=== PATIENT | female | born 1950 | race Caucasian/White ===

== ENCOUNTER 2017-04-26 09:17 | Emergency (ER) | payer MEDICARE ==
[~2017-04-26] VITALS: Ht 172.7 cm; Wt 91.0 kg
[2017-04-26 09:33] VITALS: BP 160/75; PULSE 102; RESP 17; TEMP 98.7; O2SAT 98
[2017-04-26] MEDS ORDERED: SODIUM CHLOR 0.9% 1000 ML INJ 1,000 ML IV ONE (09:58)
[2017-04-26 10:24] LABS: AUTOMATED NEUTROPHIL # 5.5 TH/MM3 (1.8-7.7); BASOPHIL % 0.6 % (0.0-2.0); EOSINOPHIL # 0.2 TH/MM3 (0-0.4); EOSINOPHIL % 2.2 % (0.0-4.0); HEMATOCRIT 26.1 % (35.0-46.0); HEMO FLAGS DIFF FINAL; LYMPH % 22.7 % (9.0-44.0); LYMPHOCYTE # 1.8 TH/MM3 (1.0-4.8); MEAN CELL VOLUME 83.2 FL (80.0-100.0); MEAN CORPUSCULAR HEMOGLOBIN 27.4 PG (27.0-34.0); MONO % 5.6 % (0.0-8.0); NEUT % 68.9 % (16.0-70.0); PLATELET COUNT 331 TH/MM3 (150-450); RED BLOOD COUNT 3.14 MIL/MM3 (4.00-5.30); WHITE BLOOD COUNT 7.9 TH/MM3 (4.0-11.0)
[2017-04-26 10:33] LABS: POTASSIUM 3.6 MEQ/L (3.5-5.1)
[2017-04-26 10:36] LABS: BICARBONATE 26.2 MEQ/L (21.0-32.0)
[2017-04-26 10:54] VITALS: BP 157/83; PULSE 104; RESP 18; O2SAT 98
--- NOTE | 2017-04-26 11:06 | PD ---
HPI Chief Complaint: Parlor Maid Problem/Complaint Time Seen by Provider: 09:42 Travel History International Travel<30 days: No Contact w/Intl Traveler<30days: No Traveled to known affect area: No History of Present Illness HPI 66-year-old female with history of intermittent vaginal bleeding for the last 2 weeks. Patient reports to using 2-3 pads per day. Patient denies abdominal pain. She has not seen a VASCULAR PHYSICIAN or had a pelvic exam and 28 years. Patient reports the bleeding has resolved over the last 2 days but she felt slightly dizzy upon standing this morning prompting her visit today. She currently has no complaints. She denies chest pain, shortness of breath, abdominal pain. PFSH Past Medical History Medical History: Denies Significant Hx Influenza Vaccination: No Menopausal: Yes Past Surgical History Surgical History: No Previous Surgery Social History Alcohol Use: No Tobacco Use: No Substance Use: No Allergies-Medications (Allergen,Severity, Reaction): Coded Allergies: No Known Allergies (Unverified , 04/26/17) Reported Meds & Prescriptions Reported Meds & Active Scripts Active No Active Prescriptions or Reported Medications Review of Systems Except as stated in HPI: all other systems reviewed are Neg General / Constitutional: No: Fever Eyes: No: Visual changes HENT: No: Headaches Cardiovascular: No: Chest Pain or Discomfort Respiratory: No: Shortness of Breath Gastrointestinal: No: Abdominal Pain Genitourinary: No: Dysuria Musculoskeletal: No: Pain Skin: No Rash Neurologic: No: Weakness Psychiatric: No: Depression Physical Exam Narrative GENERAL: Alert well-nourished and well-appearing female SKIN: Focused skin assessment warm/dry. HEAD: Atraumatic. Normocephalic. EYES: Pupils equal and round. No scleral icterus. No injection or drainage. Conjunctiva is pink. ENT: No nasal bleeding or discharge. Mucous membranes pink and moist. NECK: Trachea midline. No JVD. CARDIOVASCULAR: Regular rate and rhythm. No murmur appreciated. RESPIRATORY: No accessory muscle use. Clear to auscultation. Breath sounds equal bilaterally. GASTROINTESTINAL: Abdomen soft, non-tender, nondistended. Hepatic and splenic margins not palpable. MUSCULOSKELETAL: No obvious deformities. No clubbing. No cyanosis. No edema. : Normal appearing external genitalia without lesions, no blood in the vault. Numerous fleshy colored growths on what appears to be the cervix that become friable and slightly bleed when swabbed. No adnexal mass or tenderness. The uterus is not enlarged. NEUROLOGICAL: Awake and alert. No obvious cranial nerve deficits. Motor grossly within normal limits. Normal speech. PSYCHIATRIC: Appropriate mood and affect; insight and judgment normal. Data Data Last Documented VS Vital Signs Date Time Temp Pulse Resp B/P (MAP) Pulse Ox O2 Delivery O2 Flow Rate FiO2 04/26/17 11:31 04/26/17 10:54 104 18 98 Room Air 04/26/17 09:33 98.7 Orders Orders Complete Blood Count With Diff (04/26/17 09:58) Basic Metabolic Panel (Bmp) (04/26/17 09:58) Iv Access Insert/Monitor (04/26/17 09:58) Sodium Chlor 0.9% 1000 Ml Inj (Ns 1000 M (04/26/17 09:58) Orthostatic Blood Pressure (04/26/17 09:58) Labs Laboratory Tests Test 04/26/17 10:10 White Blood Count 7.9 TH/MM3 Red Blood Count 3.14 MIL/MM3 Hemoglobin 8.6 GM/DL Hematocrit 26.1 % Mean Corpuscular Volume 83.2 FL Mean Corpuscular Hemoglobin 27.4 PG Mean Corpuscular Hemoglobin Concent 33.0 % Red Cell Distribution Width 15.0 % Platelet Count 331 TH/MM3 Mean Platelet Volume 6.4 FL Neutrophils (%) (Auto) 68.9 % Lymphocytes (%) (Auto) 22.7 % Monocytes (%) (Auto) 5.6 % Eosinophils (%) (Auto) 2.2 % Basophils (%) (Auto) 0.6 % Neutrophils # (Auto) 5.5 TH/MM3 Lymphocytes # (Auto) 1.8 TH/MM3 Monocytes # (Auto) 0.4 TH/MM3 Eosinophils # (Auto) 0.2 TH/MM3 Basophils # (Auto) 0.0 TH/MM3 CBC Comment DIFF FINAL Differential Comment Blood Urea Nitrogen 12 MG/DL Creatinine 0.82 MG/DL Random Glucose 146 MG/DL Calcium Level 8.4 MG/DL Sodium Level 140 MEQ/L Potassium Level 3.6 MEQ/L Chloride Level 106 MEQ/L Carbon Dioxide Level 26.2 MEQ/L Anion Gap 8 MEQ/L Estimat Glomerular Filtration Rate 69 ML/MIN MDM Medical Decision Making Medical Screen Exam Complete: Yes Emergency Medical Condition: Yes Differential Diagnosis Differential diagnoses include but not limited to dysfunctional uterine bleeding , malignancy, cervicitis Narrative Course 66-year-old female with history of intermittent vaginal bleeding for the last 2 weeks. Patient reports to using 2-3 pads per day. Patient denies abdominal pain. She has not seen a VASCULAR PHYSICIAN or had a pelvic exam and 28 years. Patient reports the bleeding has resolved over the last 2 days but she felt slightly dizzy upon standing this morning prompting her visit today. She currently has no complaints. On exam the patient has fleshy colored growths on the cervix which began to bleed mildly during the pelvic exam. She has no adnexal mass or tenderness. The uterus is not enlarged. Her abdomen is soft and nontender. She was found to be anemic with hemoglobin of 8.6. Orthostatic vital signs showed a mild increase in heart rate. She received 1 L of IV fluids. On reexam she reports symptom improvement after fluids. She reports the dizziness has resolved. She reports no vaginal bleeding at this time. health program manager set up appointment with outpatient VASCULAR PHYSICIAN/oncologist Dr. BISHOP for follow-up on Saturday. Strict return precautions discussed. Patient is to return to the emergency department immediately if she begins to have heavy vaginal bleeding or dizziness. Diagnosis Primary Impression: Vaginal bleeding Referrals: Urvashi Bishop MD [facility] Additional Instructions: Keep your scheduled appointment with Dr. NORIEGA their office will be calling you to set up an exact date Stay well hydrated by drinking plenty of fluids Return to the emergency department if he developed new or worsening symptoms Scripts No Active Prescriptions or Reported Meds Disposition: 01 DISCHARGE HOME Condition: Stable Urvashi Castellon Apr 26, 2017 11:06
== END 2017-04-26 11:51 | disposition home or self-care (01) ==
LOC: PHED 09:17
DX: N93.9 Abnormal uterine and vaginal bleeding, unspecified (principal)
CPT/HCPCS: 80048; 85025; 96360; 99284; J7030

== ENCOUNTER → 2017-05-02 | Outpatient (CLI) | payer MEDICARE ==
[2017-05-02 11:41] LABS: AUTOMATED NEUTROPHIL # 4.5 TH/MM3 (1.8-7.7); BASOPHIL # 0.1 TH/MM3 (0-0.2); BASOPHIL % 0.8 % (0.0-2.0); EOSINOPHIL # 0.2 TH/MM3 (0-0.4); HEMATOCRIT 29.2 % (35.0-46.0); HEMO FLAGS DIFF FINAL; LYMPH % 31.3 % (9.0-44.0); LYMPHOCYTE # 2.3 TH/MM3 (1.0-4.8); MEAN CELL VOLUME 82.9 FL (80.0-100.0); MEAN CORPUSCULAR HGB CONC 32.6 % (32.0-36.0); MONO % 5.9 % (0.0-8.0); PLATELET COUNT 349 TH/MM3 (150-450); RED BLOOD COUNT 3.52 MIL/MM3 (4.00-5.30); RED CELL DISTRIBUTION WIDTH 15.3 % (11.6-17.2); WHITE BLOOD COUNT 7.5 TH/MM3 (4.0-11.0)
[2017-05-02 11:58] LABS: APTT (PATIENT) 24.2 SEC (24.3-30.1); PROTHROMBIN TIME - PATIENT 10.5 SEC (9.8-11.6)
[2017-05-02 12:23] LABS: ANION GAP 7 MEQ/L (5-15); AST (GOT) 13 U/L (15-37); BICARBONATE 25.6 MEQ/L (21.0-32.0); BLOOD UREA NITROGEN 12 MG/DL (7-18); CHLORIDE 107 MEQ/L (98-107); GLOMERULAR FILTRATION RATE 78 ML/MIN (>89); GLUCOSE,FASTING 98 MG/DL (74-99); POTASSIUM 4.4 MEQ/L (3.5-5.1); SODIUM (NA) 140 MEQ/L (136-145)
[2017-05-02 12:24] LABS: ALT (GPT) 19 U/L (10-53)
[2017-05-02 12:26] LABS: ALKALINE PHOSPHATASE 88 U/L (45-117); TOTAL BILIRUBIN ADULT 0.4 MG/DL (0.2-1.0)
--- NOTE | 2017-05-02 12:56 | RADRPT ---
EXAM DATE/TIME: 05/02/2017 11:51 [facility] COMPARISON: No previous studies available for comparison. INDICATIONS : Pre op to evaluate for pneumonia, pneumothorax, or any communicable diseases. MEDICAL HISTORY : None. SURGICAL HISTORY : None. ENCOUNTER: Initial ACUITY: 1 day PAIN SCORE: 0/10 LOCATION: Bilateral chest FINDINGS: PA and lateral views of the chest demonstrate the lungs to be symmetrically aerated without evidence of mass, infiltrate or effusion. The cardiomediastinal contours are unremarkable. Osseous structure s are intact. CONCLUSION: No evidence of acute cardiopulmonary disease. Zia Matthew MD on May 02, 2017 at 12:54 Board Certified Radiologist. This report was verified electronically.
--- NOTE | 2017-05-03 18:26 | EKG ---
Date Performed: 05/02/2017 Time Performed: 11:18:15 PTAGE: 66 years EKG: Sinus rhythm LOW QRS VOLTAGE IN PRECORDIAL LEADS BORDERLINE ECG NO PREVIOUS TRACING DOCTOR: Esha Barron Interpretating Date/Time 05/03/2017 18:18:30
== END ==
LOC: CPRE 11:01
PROVIDERS: ATTEND Obstetrics & Gynecology Gynecologic Oncology
DX: Z01.812 Encounter for preprocedural laboratory examination (principal); Z01.810 Encounter for preprocedural cardiovascular examination; Z01.811 Encounter for preprocedural respiratory examination; N95.0 Postmenopausal bleeding; R94.31 Abnormal electrocardiogram [ECG] [EKG]
CPT/HCPCS: 36415; 71020; 80053; 85025; 85610; 85730; 93005

== ENCOUNTER 2017-05-14 10:28 | Inpatient (IN) | payer MEDICARE ==
[~2017-05-14] VITALS: Ht 170.2 cm; Wt 82.3 kg
[2017-05-14] MEDS ORDERED: METOPROLOL TARTRATE 25 MG TAB PO PRN (11:00)
[2017-05-14] MEDS ORDERED: LACTATED RINGER'S 1000 ML IV PRN (11:00)
[2017-05-14] MEDS ORDERED: SODIUM CHLORID 0.9% 500 ML IV PRN (11:00)
[2017-05-14] MEDS ORDERED: POVIDONE IODINE 5% (ANTISEPSIS KIT) 4 APPLICATIONS EACH NARE PRN (11:00)
[2017-05-14] MEDS ORDERED: CHLORHEXIDINE GLUCONATE 2 % 1 PACK (2 CLOTHS) TOPICAL PRN (11:00)
[2017-05-14] MEDS ORDERED: ACETAMINOPHEN 1000 MG/100 ML 100 ML IV ONE (11:58)
[2017-05-14] MEDS ORDERED: GLYCOPYRROLATE 1 MG/5 ML SYRINGE IV PUSH ONE (12:00)
[2017-05-14] MEDS ORDERED: DEXAMETHASONE SOD PHOS 4 MG/ML VIAL IV ONE (12:00)
[2017-05-14] MEDS ORDERED: NEOSTIGMINE 3 MG/3 ML SYR IV ONE (12:00)
[2017-05-14] MEDS ORDERED: PROPOFOL 200 MG/20 ML AMP IV ONE (12:00)
[2017-05-14] MEDS ORDERED: ONDANSETRON HCL 4 MG/2 ML VIAL IV ONE (12:00)
[2017-05-14] MEDS ORDERED: MIDAZOLAM HCL 2 MG/2 ML VIAL IV ONE (12:00)
[2017-05-14] MEDS ORDERED: LACTATED RINGER'S 1000 ML INJ 1,000 ML IV ONE (12:00)
[2017-05-14] MEDS ORDERED: LIDOCAINE HCL 1% PF 5 ML SYRINGE OTHER ONE (12:00)
[2017-05-14] MEDS ORDERED: ROCURONIUM INJ 50 MG/5 ML SYRINGE IV PUSH ONE (12:00)
[2017-05-14] MEDS ORDERED: ESTROGENS CONJUGATED VAG CREA 15 APPL/30 GM TUBE ONE (14:08)
[2017-05-14] MEDS ORDERED: DO NOT ADM ANY ANTICOAGULANT DRUGS PRN (14:28)
[2017-05-14] MEDS ORDERED: oxyCODONE/ACETAMINOPHEN 5 MG/325 MG TAB PO PRN ×2 (14:30)
[2017-05-14] MEDS ORDERED: ONDANSETRON HCL 4 MG/2 ML VIAL IVP PRN (14:30)
[2017-05-14] MEDS ORDERED: SODIUM CHLORIDE 0.9% FLUSH 10 ML FLUSH IV FLUSH PRN (14:30)
[2017-05-14] MEDS ORDERED: LORazepam 0.5 MG TAB PO PRN (15:00)
[2017-05-14] MEDS: D5-1/2 NS + KCL 20 MEQ INJ 1,000 ML IV SCH (15:00)
[2017-05-14] MEDS ORDERED: diphenhydrAMINE HCL 25 MG CAP PO PRN (15:00)
[2017-05-14] MEDS ORDERED: PILL SPLITTER OTHER PRN (15:00)
[2017-05-14] MEDS ORDERED: KETOROLAC TROMETHAMINE 30 MG/ML (IVP) VIAL IVP SCH (15:00)
[2017-05-14] MEDS ORDERED: DIATRIZOATE MEGLUM/DIATRIZOATE SOD 9 ML CUP PO ONE (15:15)
[2017-05-14] MEDS ORDERED: MIDAZOLAM HCL 2 MG/2 ML VIAL ONE (16:21)
[2017-05-14] MEDS ORDERED: ceFAZolin 2 GM PREMIX 50 ML ONE (16:41)
--- NOTE | 2017-05-14 17:40 | PD.RAD ---
Post Procedure Progress Note Pre Procedure Diagnosis: (1) Vaginal hemorrhage (2) Uterine mass Post Procedure Diagnosis: (1) Vaginal hemorrhage (2) Uterine mass Procedure Date: May 14, 2017 Supervising Radiologist: Augusto Jeffrey JR Proceduralist/Assist: Ioana Maradiaga, RT(R)(), Diana Cook RT(R) Anesthesia: Conscious Sedation Plan of Activity Patient to Unit: Critical Care Patient Condition: Good See PACS Report for procedural detail/treatment Vascular-Arterial Procedure Procedure 1 Procedure(s): Embolization Access Access Site(s): Right Femoral Artery Closure Site(s): Right vascular closure device Findings: Pelvic angiogram shows no active bleed. Successful bilateral UAE utilizing gelfoam. Jr. Wojciech,Augusto Stephens MD May 14, 2017 17:40
[2017-05-14] MEDS ORDERED: GELATIN 12 MM/7 MM FOAM I-ARTERIAL ONE (18:18)
[2017-05-14] MEDS ORDERED: IODIXANOL 320 MG/ML 50 ML VIAL (for RAD SPEC) I-ARTERIAL ONE (18:18)
[2017-05-14] MEDS: SODIUM CHLORIDE 0.9% FLUSH 10 ML FLUSH IV FLUSH SCH (20:28)
[2017-05-14 20:30] VITALS: BP 169/94; PULSE 107; RESP 18; TEMP 98.8; O2SAT 96
--- NOTE | 2017-05-14 20:57 | RADRPT ---
EXAM DATE/TIME: 05/14/2017 16:39 [facility] COMPARISON: No previous studies available for comparison. INDICATIONS : Patient with a history of cervical mass. Postbiopsy bleeding. Embolization requested by MEDICAL HISTORY : Post menopausal bleeding Cervical mass SURGICAL HISTORY : None ENCOUNTER: Initial ACUITY: 1 day PAIN SCORE: 0/10 FLUORO TIME: 10.0 minutes IMAGE SERIES: 18 ACCESS SITE: Right Femoral artery SEDATION TIME: 60 minutes CONTRAST: 1.) 130 cc Visipaque (iodixanol) MEDICATION(S): 1.) 2 mg midazolam (Versed) IV 2.) 100 mcg fentanyl (Sublimaze) IV DEVICE(S): 1.) Bilateral uterine artery Gelfoam 2.) Right common femoral artery 6FR Angio-Seal PROCEDURE : 1. Ultrasound-guided puncture of the access site. 2. Angiography of the access site prior to closure device. 3. Conscious sedation with continuous EKG and Oximetry monitoring. 4. Percutaneous closure of the access site. 5. Angiography of the left uterine artery 6. Angiography of the right uterine artery 7. embolization of the left uterine artery 8. Embolization of the right uterine artery The risks, benefits and alternatives to the procedure were explained and verbal and written consent w as obtained. The site was prepped in sterile fashion. Full sterile technique was used, including ca p, mask, sterile gloves and gown and a large sterile sheet. Hand hygiene and 2% chlorhexidine and/or betadine/alcohol prep was utilized per protocol for cutaneous antisepsis. Sterile gel and sterile p robe cover were utilized for ultrasound guidance. The skin and subcutaneous tissues were infiltrated with local anesthetic solution. With ultrasound and fluoroscopic guidance the right common femoral artery was punctured and a vascula r sheath was placed. Angiography of the common femoral artery was performed for evaluation prior to percutaneous closure device placement. A catheter was passed into the lower abdominal aorta and a pelvic angiogram performed. The diagnostic images show a pelvic mass that is hypervascular in nature supplied predominantly via the left uterin e artery. There is a small component of the mass is supplied by a branch off the right L5 lumbar radha ry. This supplies a small portion of the right superolateral portion of the mass. The bulk of the sup ply to the mass is via the left uterine artery. No active hemorrhage observe. After reviewing the images and empiric bilateral uterine artery embolization was felt most prudent. T he left uterine artery was selected and selective angiography highlighted the detail of the anatomy a n arterial supply to the mass. Gelfoam embolization was performed to stasis. A followup angiogram was performed to confirm appropriate embolization. The right uterine artery was then selected. The size of this vessel required a microcatheter. A selective angiogram confirmed the appropriate position of the catheter. Gelfoam embolization was performed from this level as well. A small supply of the arter ial supply to the mass arising from the right L5 lumbar artery was not sufficient to warrant emboliza tion from that vessel. Hemostasis was obtained with the prescribed medicated closure device. Conscious sedation was perform ed with the prescribed dosages and duration as above in the presence of an independent trained radiol ogy nurse to assist in the monitoring of the patient. EKG and oximetry remained stable throughout th e procedure. CONCLUSION: No active source of hemorrhage observed. Bilateral uterine artery embolization performed without diff iculty. Note is made of a small portion of the arterial supply to the mass is arising from the right L5 lumbar artery. Augusto Jeffrey Jr., MD on May 14, 2017 at 19:55 Board Certified Radiologist. This report was verified electronically.
[2017-05-14] MEDS ORDERED: IOHEXOL 350 MG/ML 10 ML VIAL (for RAD DIAG) IVCONTRAST ONE (23:14)
[2017-05-15] VITALS (9 sets, daily range): BP systolic 132–161; BP diastolic 76–92; PULSE 73–104; RESP 18–20; TEMP 98.3–99.2; O2SAT 94–98
[2017-05-15] MEDS: D5-1/2 NS + KCL 20 MEQ INJ 1,000 ML IV SCH (00:39)
--- NOTE | 2017-05-15 01:54 | RADRPT ---
EXAM DATE/TIME: 05/14/2017 22:53 [facility] COMPARISON: CHEST PA & LAT, May 02, 2017, 11:51. INDICATIONS : Pelvic tumor. Evaluate for metastatic disease. IV CONTRAST: 80 cc Omnipaque 350 (iohexol) IV ; Cumulative dose for multiple exams. RADIATION DOSE: 5.64 CTDIvol (mGy) ; Combined studies - Thorax/Abdomen/Pelvis MEDICAL HISTORY : None SURGICAL HISTORY : None. ENCOUNTER: Initial ACUITY: 1 day PAIN SCALE: 0/10 LOCATION: chest TECHNIQUE: Volumetric scanning of the chest was performed. Using automated exposure control and adjustment of t he mA and/or kV according to patient size, radiation dose was kept as low as reasonably achievable to obtain optimal diagnostic quality images. DICOM format image data is available electronically for review and comparison. Follow-up recommendations for detected pulmonary nodules are based at a minimum on nodule size and pa tient risk factors according to Fleischner Society Guidelines. FINDINGS: LUNGS: Mild bibasilar atelectasis and/or scarring.. No concerning pulmonary nodule is visualized. PLEURA: There is no pleural thickening or pleural effusion. MEDIASTINUM: The heart and great vessels demonstrate no acute abnormality. There is no mediastinal or hilar lymph adenopathy. AXILLAE: Within normal limits. No lymphadenopathy. SKELETAL: Within normal limits for patient age. MISCELLANEOUS: The visualized upper abdominal organs demonstrate no acute abnormality. CONCLUSION: No evidence of thoracic metastatic disease. Mild atelectasis and/or scarring of the lung bases. Zia Matthew MD on May 15, 2017 at 1:51 Board Certified Radiologist. This report was verified electronically.
--- NOTE | 2017-05-15 02:01 | RADRPT ---
EXAM DATE/TIME: 05/14/2017 22:51 [facility] COMPARISON: No previous studies available for comparison. INDICATIONS : Pelvic tumor. Evaluate for metastatic disease. IV CONTRAST: 80 cc Omnipaque 350 (iohexol) IV ; Cumulative dose for multiple exams. ORAL CONTRAST: Prescribed oral contrast ingested. RADIATION DOSE: 5.64 CTDIvol (mGy) ; Combined studies - Thorax/Abdomen/Pelvis MEDICAL HISTORY : None SURGICAL HISTORY : None. ENCOUNTER: Initial ACUITY: 1 day PAIN SCALE: 0/10 LOCATION: Abdomen. TECHNIQUE: Volumetric scanning of the abdomen and pelvis was performed. Using automated exposure control and ad justment of the mA and/or kV according to patient size, radiation dose was kept as low as reasonably achievable to obtain optimal diagnostic quality images. DICOM format image data is available electro nically for review and comparison. FINDINGS: Friable appearing cervical mass noted measuring approximately 5.5 x 6.2 x 7.6 cm. There is a mass of the left uterine body/fundus that measures approximately 4.1 x 4.7 cm in size and appears to be a com ponent of the same cervical mass. The mass extends into the upper vagina. I don't see bladder involve ment. Scattered mildly conspicuous retroperitoneal lymph nodes are demonstrated. For example, there is a ri ght external iliac lymph node that measures approximately 12 x 15 mm in size. There are aortocaval ly mph nodes at the level of the lower pole of the left kidney and measure up to 10 x 12 mm in size. Liver, spleen, pancreas, adrenal glands and kidneys within normal limits. Numerous small stones are s uspected in the gallbladder. I don't see a duct stone or ductal dilatation. No lytic or sclerotic lesions seen of the visualized osseous structures. CONCLUSION: 1. Large uterine mass appears to arise from the cervix and lower portion of the mass appears friable and/or necrotic. 2. A few scattered upper limits of normal retroperitoneal lymph nodes as above. Zia Matthew MD on May 15, 2017 at 1:54 Board Certified Radiologist. This report was verified electronically.
[2017-05-15 05:53] LABS: AUTOMATED NEUTROPHIL # 8.1 TH/MM3 (1.8-7.7); BASOPHIL % 0.1 % (0.0-2.0); HEMATOCRIT 30.1 % (35.0-46.0); HEMO FLAGS DIFF FINAL; LYMPH % 13.1 % (9.0-44.0); LYMPHOCYTE # 1.3 TH/MM3 (1.0-4.8); MEAN CELL VOLUME 79.6 FL (80.0-100.0); MEAN CORPUSCULAR HEMOGLOBIN 26.2 PG (27.0-34.0); MEAN CORPUSCULAR HGB CONC 32.9 % (32.0-36.0); MONO % 5.8 % (0.0-8.0); PLATELET COUNT 324 TH/MM3 (150-450); RED BLOOD COUNT 3.78 MIL/MM3 (4.00-5.30); RED CELL DISTRIBUTION WIDTH 15.2 % (11.6-17.2); WHITE BLOOD COUNT 9.9 TH/MM3 (4.0-11.0)
[2017-05-15 06:23] LABS: BICARBONATE 25.5 MEQ/L (21.0-32.0); POTASSIUM 4.4 MEQ/L (3.5-5.1)
[2017-05-15] MEDS ORDERED: SODIUM CHLOR 0.9% 250 ML INJ 250 ML IV ONE (07:45)
--- NOTE | 2017-05-15 08:00 | MP ---
cc: AMINTA GRIGGS MD DATE OF SURGERY 05/14/2017 PREOPERATIVE DIAGNOSES 1. Central pelvic tumor. 2. Bleeding 3. Anemia. POSTOPERATIVE DIAGNOSIS 1. Central pelvic tumor. 2. Bleeding 3. Anemia. PROCEDURE Examination under anesthesia, biopsies of central pelvic tumor. Cystoscopy. Proctoscopy. SURGEON Aminta Griggs MD ELECTROPHONIC ENGINEER [employer] horticultural nursery assistant ANESTHESIA Laryngeal mask anesthesia. ESTIMATED BLOOD LOSS 200 cc. HISTORY This 66-year-old female presented initially to the emergency room reporting at least 7 months of postmenopausal bleeding at times associated with pain and sense of pelvic pressure. On exam she was seen to have tumor in the central pelvis either replacing the cervix or extending through a dilated cervix. She was referred to our office for further evaluation. She was seen and recommended exam under anesthesia, a tissue biopsy to clarify the diagnosis and she understands and agrees. She is seen again in the preop holding area accompanied by her [id number]. I again reviewed the findings and concerns, explained again this was an information-gathering step, diagnostic and that the information gathered today would be used toward making a definitive treatment decision. Questions were asked and answered. She expressed good understanding and agreed to proceed. FINDINGS On exam under anesthesia there was no overtly enlarged inguinal lymph nodes. External genitalia without mass or lesion. On speculum exam there is a large exophytic friable tumor; it is difficult to tell if it is rising from the endocervical canal and extending the cervix. The cervix is markedly dilated with the tumor diameter at least 4-5 cm versus tumor in the endometrium that has extended down through the cervical canal and dilated the cervix. Circumferentially around the perimeter of the cervix it is smooth. The uterus is quite prominent, estimated at least 14 cm. Whereas there is no obvious tumor to the pelvic sidewall and no obvious fixation in the parametria, there is some prominence to the parametria especially on the right. On cystoscopy the bladder mucosa appears normal circumferentially. The ureteral ostia are well-visualized bilaterally and there is good reflux of urine bilaterally. No evidence of tumor. No mass or polyp. On rigid proctosigmoidoscopy visibility only possible to depth of 12 cm with the mucosa appeared normal above which visibility was not possible due to complete lack of prep but rectovaginal exam confirms the anatomical findings without any overtly palpable nodular mass within the rectum. 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 Biopsy sites were quite hemorrhagic. PROCEDURE She was taken to the operating room, placed in dorsal lithotomy position after laryngeal mask anesthesia was administered. Time-out was undertaken. She was identified by sight recognition and hospital ID annamaria and the proposed procedure was reviewed and confirmed. She was carefully positioned and padded and exam under anesthesia was performed with findings as described above. She was prepped and draped in sterile fashion. In-and-out catheterization of the bladder. Exam was performed with findings. Two biopsies were taken from the tumor, one sent for frozen section analysis and one set aside for permanent histopathologic analysis. There was fairly active bleeding from the biopsy site. Topical Monsel's solution was placed with direct pressure and Ray-Blayne sponges placed against the cervix or pressure. Cystoscopy was performed using a 30-degree scope with the findings as described above showing no obvious abnormality in the bladder. No obvious compromise to the ureters. The bladder was drained. Inspection confirmed that there was still active bleeding from the biopsy site. The Ray-Blayne was soaked with blood. Reevaluation with additional Monsel's solution was applied with continued bleeding. Surgicel SNoW was placed across the face of the tumor and around the cervix and there was continued bleeding to soak the Surgicel SNoW. A second piece of Surgicel SNoW was placed around the cervix which seems to adequately control the bleeding at that moment and a Kerlix roll lubricated with Premarin Cream was placed under pressure in the lateral vaginal fornices around and overlying the cervix and in the vagina to assist in hemostasis from direct pressure. Out of concern for her to void, a Valenzuela catheter was placed in the bladder. Rigid proctosigmoidoscopy was performed with the findings as described above. Normal anatomy to a depth of 12 cm beyond which it could not be assessed. The proctoscope was removed. Change of sterile gloves was undertaken. The pack was inspected. There was no bleeding through the pack at that moment. I spoke to Dr. London Soliz and subsequently with Dr. Fabian Jeffrey in Interventional Radiology. I expressed my concerns about the hemorrhagic nature of this tumor, the fact that she is already anemic, has been bleeding for some time and the active bleeding that occurred with the exam and biopsies such that did not feel that it was safe to discharge her home at their current status. The ultimate treatment decision is uncertain whether or not she will be treated with radiation versus surgery as additional information is needed from the biopsies and we need to get imaging but I requested that she undergo a bilateral uterine artery embolization to help decrease the pulse pressure, decrease the pelvic bleeding and risk of hemorrhage and given the time and course of treatment is uncertain, it was felt that Gelfoam embolization would be appropriate and the interventional radiologists were gracious to move forward straight away. She was returned to dorsal supine position. Preliminary and final counts were correct. Foreign object left in the vagina was the vaginal pack. She has a Valenzuela catheter placed. The remainder of the hemostatic packing was biodegradable Surgicel. I then spoke to her [id number] (Sherron) who is her closest family member present, explained the findings and my recommendation for the uterine artery embolization. Questions were answered. She was pleased to provide consent in conjunction with her family member, realizing the important and urgent nature of this. Furthermore, I explained that I think she needs to be admitted to the hospital. We need to get imaging to get a better assessment and understanding of this tumor and extent, presence or absence of obvious metastatic disease and we will go ahead and type and cross her and in all probability transfuse her, try to get her some reserve, get her stabilized before discharge to home. With the aforementioned information, pathology pending, forthcoming imaging, she is to follow up with me next week (which is already scheduled) so that we may move forward with treatment recommendations and planning. MD RAQUEL Valdez/CARINA /6:46 AM /7:28 AM
[2017-05-15] MEDS: SODIUM CHLORIDE 0.9% FLUSH 10 ML FLUSH IV FLUSH SCH (08:13)
[2017-05-15] MEDS ORDERED: FUROSEMIDE 20 MG/2 ML VIAL IV PUSH ONE (08:30)
--- NOTE | 2017-05-15 08:33 | PD.ONC.PN ---
Subjective Subjective Remarks POD # 1 s/p EUA and bx s/p uterine artery embolization patient resting in bed IS at bedside, encourage to use every hour patient anxious to go home, will discharge home after transfusion of 2 units PRBs denies pain no n/v Objective Data Date Time Temp Pulse Resp B/P (MAP) Pulse Ox O2 Delivery O2 Flow Rate FiO2 05/15/17 07:54 99.2 82 20 144/76 (98) 96 05/15/17 04:00 98.8 90 18 150/84 (106) 96 05/15/17 00:06 95 05/15/17 00:00 98.3 104 18 161/92 (115) 94 05/14/17 20:30 98.8 107 18 169/94 (119) 96 05/14/17 18:28 98.6 85 15 160/85 (110) 93 Room Air 05/14/17 18:15 85 15 149/80 (103) 93 Room Air 05/14/17 18:00 84 15 149/80 (103) 95 Room Air 05/14/17 17:50 98.2 88 15 146/79 (101) 95 Room Air 05/14/17 15:49 98.3 94 16 153/75 (101) 100 Room Air 05/14/17 15:30 93 16 152/75 (100) 100 Room Air 05/14/17 15:15 88 16 151/76 (101) 100 Room Air 05/14/17 15:00 80 16 148/67 (94) 100 Nasal Cannula 3 05/14/17 14:45 92 17 149/71 (97) 100 Nasal Cannula 3 05/14/17 14:33 97.9 96 15 154/73 (100) 100 Nasal Cannula 3 05/14/17 11:11 98.3 96 20 148/82 (104) 97 05/15/17 05/15/17 05/15/17 07:00 15:00 23:00 Output Total 2250 ml 350 ml Balance -2250 ml -350 ml Result Diagram: 05/15/1751205/15/17512 Laboratory Results Laboratory Tests Test 05/15/17 05:13 White Blood Count 9.9 TH/MM3 Red Blood Count 3.78 MIL/MM3 Hemoglobin 9.9 GM/DL Hematocrit 30.1 % Mean Corpuscular Volume 79.6 FL Mean Corpuscular Hemoglobin 26.2 PG Mean Corpuscular Hemoglobin Concent 32.9 % Red Cell Distribution Width 15.2 % Platelet Count 324 TH/MM3 Mean Platelet Volume 6.7 FL Neutrophils (%) (Auto) 81.0 % Lymphocytes (%) (Auto) 13.1 % Monocytes (%) (Auto) 5.8 % Eosinophils (%) (Auto) 0.0 % Basophils (%) (Auto) 0.1 % Neutrophils # (Auto) 8.1 TH/MM3 Lymphocytes # (Auto) 1.3 TH/MM3 Monocytes # (Auto) 0.6 TH/MM3 Eosinophils # (Auto) 0.0 TH/MM3 Basophils # (Auto) 0.0 TH/MM3 CBC Comment DIFF FINAL Differential Comment Blood Urea Nitrogen 8 MG/DL Creatinine 0.74 MG/DL Random Glucose 184 MG/DL Calcium Level 8.5 MG/DL Sodium Level 139 MEQ/L Potassium Level 4.4 MEQ/L Chloride Level 105 MEQ/L Carbon Dioxide Level 25.5 MEQ/L Anion Gap 9 MEQ/L Estimat Glomerular Filtration Rate 78 ML/MIN Imaging Studies Last Impressions Chest CT 05/14/17 0000 Signed Impressions: Service Date/Time: Sunday, May 14, 2017 22:53 - CONCLUSION: No evidence of thoracic metastatic disease. Mild atelectasis and/or scarring of the lung bases. Zia Matthew MD Angiography 05/14/17 0000 Signed Impressions: Service Date/Time: Sunday, May 14, 2017 16:39 - CONCLUSION: No active source of hemorrhage observed. Bilateral uterine artery embolization performed without difficulty. Note is made of a small portion of the arterial supply to the mass is arising from the right L5 lumbar artery. Augusto Jeffrey Jr., MD Abdomen/Pelvis CT 05/14/17 0000 Signed Impressions: Service Date/Time: Sunday, May 14, 2017 22:51 - CONCLUSION: 1. Large uterine mass appears to arise from the cervix and lower portion of the mass appears friable and/or necrotic. 2. A few scattered upper limits of normal retroperitoneal lymph nodes as above. Zia Matthew MD Administered Medications Medications (Trade) Dose Ordered Sig/Taran Route PRN Reason Start Time Stop Time Status Last Admin Dose Admin Lactated Ringer's 1,000 ml @ 30 mls/hr Q24H PRN IV SEE LABEL COMMENTS 05/14/17 11:00 05/17/17 10:59 05/14/17 11:14 Povidone Iodine (Betadine 5% Antisepsis Kit) 1 applic [employer] PRN EACH NARE SEE LABEL COMMENTS 05/14/17 11:00 05/17/17 10:59 05/14/17 11:14 Chlorhexidine Gluconate (Chlorhexidine 2% Cloth) 3 pack [employer] PRN TOPICAL SEE LABEL COMMENTS 05/14/17 11:00 05/17/17 10:59 05/14/17 10:50 Potassium Chloride/Dextrose/ Sod Cl 1,000 ml @ 125 mls/hr Q8H IV 05/14/17 15:00 05/15/17 00:39 Objective Remarks GENERAL: Well-nourished, well-developed patient. SKIN: Warm and dry. HEAD: Normocephalic. EYES: No scleral icterus. No injection or drainage. CARDIOVASCULAR: Regular rate and rhythm without murmurs. RESPIRATORY: Breath sounds equal bilaterally. No accessory muscle use. PSYCHOLOGIST PRIVATE PRACTICE: vaginal packing removed without difficulty, no overt vaginal bleeding upon removal of packing. EXTREMITIES: No cyanosis, or edema. MUSCULOSKELETAL: Adequate muscle tone. PSYCHIATRIC: Appropriate mood and affect; insight and judgment normal. Assessment/Plan Problem List: (1) Vaginal hemorrhage ICD Codes: N93.9 - Abnormal uterine and vaginal bleeding, unspecified Status: Acute Plan: s/p uterine artery embolization vaginal packing removed without difficulty no overt vaginal bleeding Surgicel remains in vagina (2) Uterine mass ICD Codes: N85.9 - Noninflammatory disorder of uterus, unspecified Status: Acute Plan: s/p EUA with bx final pathology pending treatment recommendation based on final pathology cervical ca vs. uterine ct scan: favors tumor arising from cervix, + lymph nodes Attending Statement discussed with RN importance of transfusion before discharge discussed with PT, Ok for discharge once transfusion completed discussed with Fredis Spears May 15, 2017 08:33
[2017-05-15] MEDS: diphenhydrAMINE HCL 25 MG CAP PO PRN ×2 (10:48→14:56)
[2017-05-15] MEDS: ACETAMINOPHEN 325 MG TAB PO PRN ×2 (10:49→14:55)
--- NOTE | 2017-05-16 11:58 | MD ---
cc: AMINTA GRIGGS MD ADMISSION DATE: 05/14/2017 DISCHARGE DATE: 05/15/2017 PROCEDURE 1. Examination under anesthesia, biopsies of cervical tumor, cystoscopy, proctoscopy, acquisition of hemostasis and vaginal packing. 2. Interventional radiology directed bilateral arterial embolization. 3. On 05/13/2017 transfusion two units of packed red blood cells. 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 HOSPITAL COURSE She did well during her hospitalization but required some attention. She had a very friable hemorrhagic tumor. She was anemic biopsies initiated additional bleeding which required attention with hemostasis and vaginal packing interventional radiology was consulted, they performed a bilateral uterine artery embolization and she was transfused 2 units to help offset the anemia and to provide some reserve prior to discharge. She tolerated the aforementioned procedures well, at the time of this dictation. She has ongoing transfusion, she has had no problems with the transfusion thus far. She understands and agrees with and appreciates all of the steps taken thus far. Also during her hospitalization she had a diagnostic CT scan of the chest, abdomen and pelvis performed. 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 CT scan shows a markedly enlarged uterus with a very prominent cervix measuring over 6 cm with a obvious tumor, and the tumor extends beyond the cervix into the vagina. There is also some borderline suspicious lymph nodes in the left para-aortic region and right external iliac region. Final pathology is pending, ins and outs 1520 over 2900, H&H hemoglobin/hematocrit 9.9 and 30.91. Electrolytes showed normal renal function, BUN, creatinine eight, 0.74. PHYSICAL EXAMINATION: VITAL SIGNS: The physical exam she is afebrile, pulse 82-102, respirations 16-20, blood pressure 132-150 over 76-84, O2 saturations greater than or equal to 94%. IN GENERAL: She is alert and oriented x3. ABDOMEN: Nonacute. PELVIC: The vaginal pack was removed. Valenzuela catheter were removed. There was no active bleeding detected. ASSESSMENT Postop day #1, hospital day #2 hemodynamically stable ongoing Transfusion, status post embolization and procedure as described above. Activities restrictions discussed and reviewed. Questions were answered. She expressed good understanding and is grateful for the care provided. PLAN 1. She knows to contact our office to ensure that she has a scheduled followup within 1 week. I believe she is already scheduled followup next Saturday if possible to see her in the office sooner I would be happy to see her sooner. 2. We also will make referral for radiation oncology evaluation as based on the findings thus far it favors a probability that she will need radiation, and possibly a combination of surgery and radiation and we will put a request for that consultation as an outpatient as well. 3. She has not had a prescription medications previously and can take [id number] medications for pain. She will call our office should she have any questions or problems between now the time of scheduled followup. MD RAQUEL Valdez/danielito /2:17 PM /11:53 AM
== END 2017-05-15 17:59 | disposition home or self-care (01) | DRG 744 ==
LOC: HSDC 10:28 → HSDI 14:28 → HCIN 18:35
PROVIDERS: ADMIT Obstetrics & Gynecology Gynecologic Oncology; ATTEND Obstetrics & Gynecology Gynecologic Oncology
PROC: 04LE3DT Occlusion of Right Uterine Artery with Intraluminal Device, Percutaneous Approach (ICD-10-PCS; 2017-05-14)
PROC: 04LF3DU Occlusion of Left Uterine Artery with Intraluminal Device, Percutaneous Approach (ICD-10-PCS; 2017-05-14)
PROC: 0TJB8ZZ Inspection of Bladder, Via Natural or Artificial Opening Endoscopic (ICD-10-PCS; 2017-05-14)
PROC: 0DJD8ZZ Inspection of Lower Intestinal Tract, Via Natural or Artificial Opening Endoscopic (ICD-10-PCS; 2017-05-14)
PROC: 0UBC7ZX Excision of Cervix, Via Natural or Artificial Opening, Diagnostic (ICD-10-PCS; principal; 2017-05-14 12:55)
PROC: 30233N1 Transfusion of Nonautologous Red Blood Cells into Peripheral Vein, Percutaneous Approach (ICD-10-PCS; 2017-05-15)
DX: C53.9 Malignant neoplasm of cervix uteri, unspecified (principal); N99.61 Intraoperative hemorrhage and hematoma of a genitourinary system organ or structure complicating a genitourinary system procedure; D64.9 Anemia, unspecified; N95.0 Postmenopausal bleeding
CPT/HCPCS: 36430; 71260; 74177; 80048; 85025; 86850; 86900; 86901; 86920; 88305; 88331; 94150; C1760; C1769; C1887; C1894; J0131; J0690; J1100; J1940; J2250; J2405; J2710; J3010; J3480; J7050; J7120; P9016; Q9963; Q9967

== ENCOUNTER 2017-06-07 05:52 | Day surgery (SDC) | payer MEDICARE ==
[~2017-06-07] VITALS: Ht 167.6 cm; Wt 86.4 kg
[2017-06-07 06:45] VITALS: BP 144/93; PULSE 94; RESP 20; TEMP 98.3; O2SAT 96
[2017-06-07] MEDS ORDERED: CHLORHEXIDINE GLUCONATE 2 % 1 PACK (2 CLOTHS) TOPICAL SCH (07:00)
[2017-06-07] MEDS ORDERED: ceFAZolin 2 GM PREMIX 50 ML - implanted port/tunneled catheter insertion IV SCH (07:00)
[2017-06-07] MEDS ORDERED: POVIDONE IODINE 5% (ANTISEPSIS KIT) 4 APPLICATIONS EACH NARE SCH (07:00)
[2017-06-07] MEDS ORDERED: SODIUM CHLORIDE 0.9% 1000 ML IV SCH (07:00)
[2017-06-07] MEDS ORDERED: VANCOMYCIN 1000 MG/NS 250 ML - implanted port/tunneled catheter IV SCH ×2 (07:00)
[2017-06-07] MEDS ORDERED: MIDAZOLAM HCL 2 MG/2 ML VIAL ONE (08:16)
[2017-06-07] MEDS ORDERED: LIDOCAINE 1%/EPINEPHrine 1:100,000 SOLN 20 ML VIAL ONE (08:29)
[2017-06-07 09:27] VITALS: BP 147/83; PULSE 88; RESP 18; TEMP 97.9; O2SAT 98
[2017-06-07] MEDS ORDERED: SODIUM CHLORIDE 0.9% FLUSH 10 ML FLUSH IVF PRN (09:30)
--- NOTE | 2017-06-07 09:41 | PD.RAD ---
Post Procedure Progress Note Pre Procedure Diagnosis: (1) Uterine mass Post Procedure Diagnosis: (1) Uterine mass Procedure Date: Jun 07, 2017 Supervising Radiologist: Brendon Constantino Proceduralist/Assist: Rosa Joy, RT(R)(CV), Laura Velasquez RT(R) Anesthesia: Local, Analgesia, Conscious Sedation Plan of Activity Patient to Unit: ROPU Patient Condition: Good See PACS Report for procedural detail/treatment Central Venous Access Device Procedure 1 Right Internal Jugular Infusaport Placement single lumen Kittitian: 8 Brendon Constantino MD Jun 07, 2017 09:41
[2017-06-07 09:42] VITALS: BP 152/94; PULSE 78; RESP 17; O2SAT 97
[2017-06-07 10:12] VITALS: BP 148/88; PULSE 86; RESP 18; O2SAT 98
[2017-06-07 10:42] VITALS: BP 137/81; PULSE 86; RESP 17; O2SAT 95
--- NOTE | 2017-06-07 13:38 | RADRPT ---
EXAM DATE/TIME: 06/07/2017 09:37 [facility] COMPARISON: No previous studies available for comparison. INDICATIONS : Patient with history of cerical cancer. Will be having chemotherapy. MEDICAL HISTORY : 1. cervical cancer SURGICAL HISTORY : 1. Bilateral uterine artery embolization. ENCOUNTER: Initial ACUITY: 2 weeks PAIN SCORE: 0/10 FLUORO TIME: 0.6 minutes IMAGE SERIES: 1 SEDATION TIME: 30 minutes ACCESS: Right internal jugular vein SEDATION: 1.) 3 mg midazolam (Versed) IV 2.) 150 mcg fentanyl (Sublimaze) IV Prophylactic antibiotics were administered with appropriate pre-procedure timing. Vancomycin within 2 hours of procedure, Ancef (or alternative) within 1 hour of procedure. DEVICE: 1. 8 Japanese single lumen Smart port PROCEDURE : 1. Continuous pulse oximetry and EKG monitoring. 2. Intravenous conscious sedation. 3. Ultrasound guidance for venous access. 4. Fluoroscopic guided implantable central venous port placement. The patient was placed supine. The neck was prepped in sterile fashion. Full sterile technique was u sed, including cap, mask, sterile gloves and gown, and a large sterile sheet. Hand hygiene and 2% ch lorhexidine Betadine was utilized per protocol for cutaneous antisepsis with appropriate dry time for site. Sterile gel and sterile probe cover were utilized for ultrasound guidance. The skin and sub cutaneous tissues were infiltrated with local anesthetic solution. Under direct ultrasound guidance, central venous access was accomplished in the targeted vessel. The ultrasound images depicting access guidance were stored and saved to PACS for permanent record. A s ubcutaneous pocket was created using blunt dissection. The port was introduced to the pocket. The c atheter tubing was fed through a subcutaneous tunnel to the venotomy site. The catheter tubing was c ut to a suitable length and then was introduced through a valved Peel-Away sheath and positioned with catheter tubing tip at the cavo-atrial junction level. The pocket incision was closed with subcutic ular Vicryl suture. Steri-Strips were applied. The port was flushed and locked with heparin solutio n per protocol. Sterile dressing was applied to the site. The patient tolerated the procedure well. Conscious sedation was performed with the prescribed dosages and duration as above in the presence of an independent trained radiology nurse to assist in the monitoring of the patient. EKG and oximetry remained stable throughout the procedure. The patient tolerated the procedure well and there were no complications. The patient was sent to post anesthesia recovery in stable condition. CONCLUSION: Uncomplicated ultrasound and fluoroscopic guided implanted central venous port catheter placement as described in detail above. An 8 Japanese Power port was placed. Brendon Constantino MD on June 07, 2017 at 13:36 Board Certified Radiologist. This report was verified electronically.
== END 2017-06-07 11:30 | disposition home or self-care (01) ==
LOC: HROP 05:52 → HRIP 05:52 → HROP 11:30
PROVIDERS: ATTEND Obstetrics & Gynecology Gynecologic Oncology
DX: Z45.2 Encounter for adjustment and management of vascular access device (principal); C53.9 Malignant neoplasm of cervix uteri, unspecified
CPT/HCPCS: 36561; 76937; 77001; 99152; 99153; C1788; J0690; J1642; J2250; J3010; J3370; J7030; J7050

== ENCOUNTER 2017-06-28 10:51 | Day surgery (SDC) | payer MEDICARE ==
[~2017-06-28] VITALS: Ht 170.2 cm; Wt 87.7 kg
[2017-06-28 11:05] VITALS: BP 191/116; PULSE 120; RESP 20; TEMP 97.9; O2SAT 92
[2017-06-28] MEDS ORDERED: VANCOMYCIN 1000 MG/NS 250 ML - implanted port/tunneled catheter IV SCH ×2 (12:00)
[2017-06-28] MEDS ORDERED: POVIDONE IODINE 5% (ANTISEPSIS KIT) 4 APPLICATIONS EACH NARE SCH (12:00)
[2017-06-28] MEDS ORDERED: SODIUM CHLORIDE 0.9% 1000 ML IV SCH (12:00)
[2017-06-28] MEDS ORDERED: ceFAZolin 2 GM PREMIX 50 ML - implanted port/tunneled catheter insertion IV SCH (12:00)
[2017-06-28] MEDS ORDERED: CHLORHEXIDINE GLUCONATE 2 % 1 PACK (2 CLOTHS) TOPICAL SCH (12:00)
[2017-06-28 12:24] LABS: PROTHROMBIN TIME - PATIENT 10.1 SEC (9.8-11.6)
[2017-06-28] MEDS ORDERED: MIDAZOLAM HCL 2 MG/2 ML VIAL ONE (12:50)
[2017-06-28] MEDS ORDERED: SODIUM CHLORIDE 0.9% FLUSH 10 ML FLUSH IVF PRN (13:45)
--- NOTE | 2017-06-28 13:47 | PD.RAD ---
Post Procedure Progress Note Pre Procedure Diagnosis: (1) Uterine mass Post Procedure Diagnosis: (1) Uterine mass Procedure Date: Jun 28, 2017 Supervising Radiologist: Yahir Soliz Estimated blood loss: 3cc Anesthesia: Local, Conscious Sedation Plan of Activity Patient to Unit: ROPU Patient Condition: Fair Additional Comments: Port evaluated and was flipped. Port pocket was opened and the port was repositioned and sutured to the chest wall with 2 proline sutures Full dictated report to follow See PACS Report for procedural detail/treatment Yahir Soliz MD Jun 28, 2017 13:47
[2017-06-28 13:50] VITALS: BP 176/107; PULSE 98; RESP 20; TEMP 98.6; O2SAT 95
--- NOTE | 2017-06-28 14:18 | RADRPT ---
EXAM DATE/TIME: 06/28/2017 14:01 [facility] COMPARISON: [id number], [facility], W US, RIGHT, June 07, 2017, 9:37. INDICATIONS : Patient presents with flipped port in need of reposition. MEDICAL HISTORY : Cervical cancer SURGICAL HISTORY : Bilateral uterine artery embolization Port ENCOUNTER: Subsequent ACUITY: 1 week PAIN SCORE: 0/10 LOCATION: N/A FLUORO TIME: 0.1 minutes IMAGE SERIES: SEDATION TIME: 30minutes MEDICATION(S): 1.) 3 mg midazolam (Versed) IV 2.) 150 mcg fentanyl (Sublimaze) IV PROCEDURE : 1. port repositioning. 2. Conscious sedation with continuous EKG and Oximetry monitoring. The patient was evaluated in the [facility]. The [id number] in the right chest was flipped. The risks, benefits and alternatives to the procedure were explained and verbal and written consent was obtained . The site was prepped in sterile fashion. Full sterile technique was used, including cap, mask, st erile gloves and gown and a large sterile sheet. Hand hygiene and 2% chlorhexidine prep was utilized per protocol for cutaneous antisepsis with appropriate dry time for site. The skin and subcutaneous tissues were infiltrated with local anesthetic solution. A suitable site above the port was selected. A small incision was made. The port was flipped back int o the appropriate position. The port was sewn to the chest wall with a Prolene suture. Conscious sedation was performed with the prescribed dosages and duration as above in the presence of an independent trained radiology nurse to assist in the monitoring of the patient. EKG and oximetry remained stable throughout the procedure. CONCLUSION: 1. Successful repositioning of the patient's port. The port was sewn to the chest wall with a Prolene suture. Yahir Soliz MD on June 28, 2017 at 14:15 Board Certified Radiologist. This report was verified electronically.
[2017-06-28 14:20] VITALS: BP 163/95; PULSE 100; RESP 20; O2SAT 93
[2017-06-28 15:50] VITALS: BP 162/89; PULSE 100; RESP 20; O2SAT 94
== END 2017-06-28 15:50 | disposition home or self-care (01) ==
LOC: HROP 10:51 → HRIP 10:56 → HROP 15:50
PROVIDERS: ATTEND Obstetrics & Gynecology Gynecologic Oncology
DX: T85.628A Displacement of other specified internal prosthetic devices, implants and grafts, initial encounter (principal); C53.9 Malignant neoplasm of cervix uteri, unspecified; Z01.818 Encounter for other preprocedural examination
CPT/HCPCS: 36576; 77001; 85610; 99152; 99153; J0690; J1642; J2250; J3010; J3370; J7030; J7050

== ENCOUNTER 2017-11-15 10:31 | Emergency (ER) | payer MEDICARE, MEDICAID ==
[~2017-11-15] VITALS: Ht 170.2 cm; Wt 90.0 kg
[~2017-11-15 10:31] MED LIST: ZOFR8TAB4 SL
[2017-11-15 10:36] VITALS: BP 168/89; PULSE 111; RESP 16; TEMP 98.4
[2017-11-15 11:04] LABS: AUTOMATED NEUTROPHIL # 2.5 TH/MM3 (1.8-7.7); BASOPHIL % 0.6 % (0.0-2.0); EOSINOPHIL # 0.1 TH/MM3 (0-0.4); EOSINOPHIL % 2.6 % (0.0-4.0); HEMATOCRIT 36.8 % (35.0-46.0); HEMOGLOBIN 12.1 GM/DL (11.6-15.3); LYMPH % 22.2 % (9.0-44.0); LYMPHOCYTE # 0.8 TH/MM3 (1.0-4.8); MEAN CELL VOLUME 84.6 FL (80.0-100.0); MEAN CORPUSCULAR HEMOGLOBIN 27.8 PG (27.0-34.0); MEAN CORPUSCULAR HGB CONC 32.9 % (32.0-36.0); MEAN PLATELET VOLUME 6.8 FL (7.0-11.0); MONO % 8.7 % (0.0-8.0); MONOCYTE # 0.3 TH/MM3 (0-0.9); NEUT % 65.9 % (16.0-70.0); PLATELET COUNT 190 TH/MM3 (150-450); RED BLOOD COUNT 4.35 MIL/MM3 (4.00-5.30); RED CELL DISTRIBUTION WIDTH 14.5 % (11.6-17.2); WHITE BLOOD COUNT 3.8 TH/MM3 (4.0-11.0)
[2017-11-15 11:13] LABS: PROTHROMBIN TIME - PATIENT 10.1 SEC (9.8-11.6)
[2017-11-15 11:16] LABS: ALBUMIN 3.4 GM/DL (3.4-5.0); ALT (GPT) 20 U/L (10-53); AST (GOT) 18 U/L (15-37); BICARBONATE 24.3 MEQ/L (21.0-32.0); BLOOD UREA NITROGEN 12 MG/DL (7-18); CALCIUM 8.9 MG/DL (8.5-10.1); CHLORIDE 107 MEQ/L (98-107); CREATININE 0.88 MG/DL (0.50-1.00); GLOMERULAR FILTRATION RATE 64 ML/MIN (>89); GLUCOSE,RANDOM 137 MG/DL (74-106); SODIUM (NA) 140 MEQ/L (136-145)
[2017-11-15 11:19] LABS: ALKALINE PHOSPHATASE 77 U/L (45-117); TOTAL BILIRUBIN ADULT 0.4 MG/DL (0.2-1.0); TOTAL PROTEIN 7.1 GM/DL (6.4-8.2)
--- NOTE | 2017-11-15 13:53 | PD ---
HPI Chief Complaint: Abnormal Results Time Seen by Provider: 13:21 Travel History International Travel<30 days: No Contact w/Intl Traveler<30days: No Traveled to known affect area: No History of Present Illness HPI The patient was seen and examined in the presence of the nurse. This patient had a routine follow-up CT scheduled for this morning to evaluate for post cervical cancer treatment. There was incidental finding of a filling defect in the right iliac and femoral veins consistent with DVT. Dr. Bishop her only physician, has advised her to go to the ER for evaluation. She was not having right leg pain or swelling. She has no history of DVT but does have known cervical cancer. She is completed radiation therapy. She did have in the past problems with vaginal bleeding but has not had vaginal bleeding for several months. No history of DVT. Symptom severity is mild. No alleviating factors. Clotting probably exacerbated by cancer PFSH Past Medical History Hx Anticoagulant Therapy: No Cancer: Yes (cervical) Cardiovascular Problems: No Chemotherapy: Yes Diabetes: No Diminished Hearing: No Endocrine: No Genitourinary: No Hepatitis: No Hiatal Hernia: No Immune Disorder: No Musculoskeletal: No Neurologic: No Psychiatric: No Reproductive: Yes Respiratory: No Immunizations Current: No Radiation Therapy: Yes Thyroid Disease: No Tetanus Vaccination: Unknown Influenza Vaccination: No ?: Not Menopausal: Yes Dilation and Curettage (D&C): Yes Past Surgical History AICD: No Genitourinary Surgery: Yes (uterine artery embolization, t&ox3) Joint Replacement: No Pacemaker: No Thoracic Surgery: Yes (port insertion) Social History Alcohol Use: No Tobacco Use: No Substance Use: No Allergies-Medications (Allergen,Severity, Reaction): Coded Allergies: No Known Allergies (Unverified , 11/15/17) Reported Meds & Prescriptions Reported Meds & Active Scripts Active Review of Systems General / Constitutional: No: Fever Eyes: No: Visual changes HENT: No: Headaches Cardiovascular: No: Chest Pain or Discomfort Respiratory: No: Shortness of Breath Gastrointestinal: No: Abdominal Pain Genitourinary: No: Dysuria Musculoskeletal: No: Pain Skin: No Rash Neurologic: No: Weakness Psychiatric: No: Depression Endocrine: No: Polydipsia Hematologic/Lymphatic: No: Easy Bruising Physical Exam Narrative GENERAL: Well-nourished, well-developed patient in no apparent distress. SKIN: Focused skin assessment reveals no rash and nodules. Skin is Warm and dry. HEAD: Atraumatic. Normocephalic. EYES: Pupils equal and round. No scleral icterus. No injection or drainage. ENT: No nasal bleeding or discharge. Mucous membranes pink and moist. NECK: Trachea midline. No JVD. CARDIOVASCULAR: Regular rate and rhythm. No murmur appreciated. RESPIRATORY: No accessory muscle use. Clear to auscultation. Breath sounds equal bilaterally. GASTROINTESTINAL: Abdomen soft, non-tender, nondistended. Hepatic and splenic margins not palpable. MUSCULOSKELETAL: No obvious deformities. No clubbing. No cyanosis. No edema. Legs are symmetric in appearance. There is some hyperpigmentation there NEUROLOGICAL: Awake and alert. No obvious cranial nerve deficits. Motor grossly within normal limits. Normal speech. PSYCHIATRIC: Appropriate mood and affect; insight and judgment normal. Data Data Last Documented VS Vital Signs Date Time Temp Pulse Resp B/P (MAP) Pulse Ox O2 Delivery O2 Flow Rate FiO2 11/15/17 15:36 98.0 85 15 170/73 (105) 100 Room Air Orders Orders Complete Blood Count With Diff (11/15/17 10:39) Comprehensive Metabolic Panel (11/15/17 10:39) Prothrombin Time / Inr (Pt) (11/15/17 10:39) Us Leg Venous Doppler (11/15/17 ) Labs Laboratory Tests Test 11/15/17 10:42 White Blood Count 3.8 TH/MM3 Red Blood Count 4.35 MIL/MM3 Hemoglobin 12.1 GM/DL Hematocrit 36.8 % Mean Corpuscular Volume 84.6 FL Mean Corpuscular Hemoglobin 27.8 PG Mean Corpuscular Hemoglobin Concent 32.9 % Red Cell Distribution Width 14.5 % Platelet Count 190 TH/MM3 Mean Platelet Volume 6.8 FL Neutrophils (%) (Auto) 65.9 % Lymphocytes (%) (Auto) 22.2 % Monocytes (%) (Auto) 8.7 % Eosinophils (%) (Auto) 2.6 % Basophils (%) (Auto) 0.6 % Neutrophils # (Auto) 2.5 TH/MM3 Lymphocytes # (Auto) 0.8 TH/MM3 Monocytes # (Auto) 0.3 TH/MM3 Eosinophils # (Auto) 0.1 TH/MM3 Basophils # (Auto) 0.0 TH/MM3 CBC Comment DIFF FINAL Differential Comment Prothrombin Time 10.1 SEC Prothromb Time International Ratio 1.0 RATIO Blood Urea Nitrogen 12 MG/DL Creatinine 0.88 MG/DL Random Glucose 137 MG/DL Total Protein 7.1 GM/DL Albumin 3.4 GM/DL Calcium Level 8.9 MG/DL Alkaline Phosphatase 77 U/L Aspartate Amino Transf (AST/SGOT) 18 U/L Alanine Aminotransferase (ALT/SGPT) 20 U/L Total Bilirubin 0.4 MG/DL Sodium Level 140 MEQ/L Potassium Level 3.9 MEQ/L Chloride Level 107 MEQ/L Carbon Dioxide Level 24.3 MEQ/L Anion Gap 9 MEQ/L Estimat Glomerular Filtration Rate 64 ML/MIN [facility] Medical Decision Making Medical Screen Exam Complete: Yes Emergency Medical Condition: Yes Medical Record Reviewed: Yes Differential Diagnosis DVT, cellulitis, PVD Narrative Course I have reviewed the patient's electronic medical record. I reviewed her outpatient CT done this morning. I also reviewed her last gynecologic oncology note which was from 3 weeks ago Labs have been sent CBC and metabolic profiles are normal Coagulation studies are normal I have ordered an ultrasound of the right leg to confirm DVT. Given that she will be on months of blood thinner with history of significant vaginal bleeding problems, I think it important to confirm this. The CT is characteristic of DVT but is not confirmatory Ultrasound of the right leg confirms DVT. He had a lengthy discussion about the risks and benefits and alternatives of blood thinner therapy. She is agreeable to accept the risk of blood thinner and would like to start. I have written here for the first 3 weeks of Xarelto. This will give her time to seek out a primary care physician to help manage her care. If she has any bleeding issues she should stop the medication and get a recheck. Diagnosis Primary Impression: Right leg DVT Qualified Codes: I82.421 - Acute embolism and thrombosis of right iliac vein Additional Instructions: The patient was advised to follow up with their physician and return if they worsen. Med/Other Pt SpecificInfo: Prescription(s) given Scripts Rivaroxaban (Xarelto) 15 Mg Tab 15 MG PO Q12HR for Blood Clot Prevention for 21 Days, TAB 0 Refills Prov: Nilesh Page MD 11/15/17 Disposition: 01 DISCHARGE HOME Condition: Stable Nilesh Page MD November 15, 2017 13:53
--- NOTE | 2017-11-15 14:41 | RADRPT ---
EXAM DATE: 11/15/2017 2:36 PM EDT AGE/SEX: 67 years / Female INDICATIONS: Filling defect noted in prior CT in right iliac vein. CLINICAL DATA: This is the patient's initial encounter. Patient reports that signs and symptoms have been present for 1 day and indicates a pain score of 0/10. MEDICAL/SURGICAL HISTORY: . Cervical cancer. . Port insertion. D&C. Uterine embolization. COMPARISON: [facility], CT ABDOMEN AND PELVIS W/ CONTRAST, 11/15/2017. . [facility], CT ABDOME N PELVIS W/ CONTRAST 2017-11-15 TECHNIQUE: Venous ultrasound of both lower extremities was performed from the inguinal ligament to t he proximal calf. Real-time, color Doppler and spectral tracing, compression and augmentation techni ques were used. FINDINGS: There is incompletely occlusive clot present in the proximal greater saphenous vein, in the deep femo ral vein and common femoral vein. The superficial femoral vein and popliteal vein and tibial veins ar e patent and unremarkable. CONCLUSION: DVT in the proximal right leg Electronically signed by: Zia Justice MD 11/15/2017 2:40 PM EDT
[2017-11-15 15:36] VITALS: BP 170/73; PULSE 85; RESP 15; TEMP 98; O2SAT 100
[2017-11-15] MEDS ORDERED: XARE15TA PO (15:57)
[2017-11-15 16:13] VITALS: BP 170/65; TEMP 98.1
== END 2017-11-15 16:13 | disposition home or self-care (01) ==
LOC: NEPC 10:31
DX: I82.421 Acute embolism and thrombosis of right iliac vein (principal); C53.9 Malignant neoplasm of cervix uteri, unspecified
CPT/HCPCS: 80053; 85025; 85610; 93971; 99284

== ENCOUNTER 2017-12-04 06:56 | Emergency (ER) | payer MEDICARE, MEDICAID ==
[~2017-12-04] VITALS: Ht 170.2 cm; Wt 86.5 kg
[~2017-12-04 06:56] MED LIST changes: +XARE15TA PO; -ZOFR8TAB4 SL
[2017-12-04 07:07] VITALS: BP 164/99; PULSE 124; RESP 16; TEMP 97.8; O2SAT 98
[2017-12-04] MEDS ORDERED: WARF-23 PO (07:30)
[2017-12-04] MEDS ORDERED: AMLO5TAB2 PO (07:30)
[2017-12-04 07:34] LABS: BILIRUBIN, URINE NEG (NEG); BLOOD, URINE MOD (NEG); GLUCOSE,URINE NEG (NEG); KETONE, URINE TRACE mg/dL (NEG); NITRITE,URINE NEG (NEG); PH, URINE 5.5 (5.0-8.5); URINE COLOR YELLOW (YELLW/STRAW); URINE LEUKOCYTE ESTERASE TRACE (NEG)
--- NOTE | 2017-12-04 07:40 | PD ---
HPI Chief Complaint: Flank/Kidney Pain Time Seen by Provider: 07:16 Travel History International Travel<30 days: No Contact w/Intl Traveler<30days: No Traveled to known affect area: No History of Present Illness HPI 67-year-old female is complaining of right upper quadrant pain. She says she has been having this pain for about 5 days. It is fairly persistent. She has not noted what makes it worse or better. She has had a poor appetite. She has been taking Tylenol without much relief of pain. She would has been diagnosed recently with cancer of the cervix. It was treated with radiation and chemotherapy she had a large abdominal mass and has had treatment with Dr. Bishop. On November [address] scan which showed that the mass had decreased in size however was noted that she had a clot in the inferior vena cava which extended into the femoral vein. This was confirmed on ultrasound that she had a DVT. She was started on Xarelto on that day. She saw her doctor for this pain a few days ago it was thought that it might be a muscle strain. It has not gotten any better. He plan to change her from Xarelto to Coumadin because she cannot afford the Xarelto. She has started Coumadin 3 days ago. Supposed to stop the Xarelto today. She says she is not short of breath PFSH Past Medical History Hx Anticoagulant Therapy: Yes Cancer: Yes (cervical) Cardiovascular Problems: Yes (htn on meds) Chemotherapy: Yes Diabetes: No Diminished Hearing: No Deep Vein Thrombosis: Yes Endocrine: No Gastrointestinal Disorders: No Genitourinary: No Hepatitis: No Hiatal Hernia: No Hypertension: Yes Immune Disorder: No Medical other: No Musculoskeletal: No Neurologic: No Psychiatric: No Reproductive: Yes Respiratory: No Immunizations Current: No Radiation Therapy: Yes Thyroid Disease: No Tetanus Vaccination: Unknown ?: Not Menopausal: Yes Dilation and Curettage (D&C): Yes Past Surgical History AICD: No Genitourinary Surgery: Yes (uterine artery embolization, t&ox3) Joint Replacement: No Pacemaker: No Thoracic Surgery: Yes (port insertion) Other Surgery: No Social History Alcohol Use: No Tobacco Use: No Substance Use: No Allergies-Medications (Allergen,Severity, Reaction): Coded Allergies: No Known Allergies (Unverified , 12/04/17) Reported Meds & Prescriptions Reported Meds & Active Scripts Active Reported Amlodipine (Amlodipine Besylate) 5 Mg Tab 5 Mg PO DAILY Warfarin 5 Mg Tab 5 Mg PO DAILY Review of Systems General / Constitutional: No: Fever, Chills Eyes: No: Diploplia, Blurred Vision HENT: No: Headaches, Vertigo Respiratory: No: Shortness of Breath, Hemoptysis Gastrointestinal: Positive: Nausea, Loss of Appetite Genitourinary: No: Urgency, Frequency Musculoskeletal: No: Myalgias Skin: No Rash Neurologic: No: Weakness Physical Exam Narrative GENERAL: Well-developed female SKIN: Focused skin assessment warm/dry. HEAD: Atraumatic. Normocephalic. EYES: Pupils equal and round. No scleral icterus. No injection or drainage. ENT: No nasal bleeding or discharge. Mucous membranes pink and moist. NECK: Trachea midline. No JVD. CARDIOVASCULAR: Regular rate and rhythm. No murmur appreciated. RESPIRATORY: No accessory muscle use. Clear to auscultation. Breath sounds equal bilaterally. GASTROINTESTINAL: Abdomen soft, non-tender, nondistended. Hepatic and splenic margins not palpable. There is some right upper quadrant tenderness without guarding or rigidity MUSCULOSKELETAL: No obvious deformities. No clubbing. No cyanosis. No edema. NEUROLOGICAL: Awake and alert. No obvious cranial nerve deficits. Motor grossly within normal limits. Normal speech. PSYCHIATRIC: Appropriate mood and affect; insight and judgment normal. Data Data Last Documented VS Vital Signs Date Time Temp Pulse Resp B/P (MAP) Pulse Ox O2 Delivery O2 Flow Rate FiO2 12/04/17 10:56 92 16 135/76 (95) 98 Room Air 12/04/17 07:07 97.8 Orders Orders Urinalysis - C+S If Indicated (12/04/17 07:10) Complete Blood Count With Diff (12/04/17 07:36) Comprehensive Metabolic Panel (12/04/17 07:36) Lipase (12/04/17 07:36) Ct Pulmonary Angiogram (12/04/17 07:36) Prothrombin Time / Inr (Pt) (12/04/17 07:41) Act Partial Throm Time (Ptt) (12/04/17 07:41) Sodium Chlor 0.9% 1000 Ml Inj (Ns 1000 M (12/04/17 07:45) Ondansetron Inj (Zofran Inj) (12/04/17 07:45) Morphine Inj (Morphine Inj) (12/04/17 07:45) Ct Abd/Pel W Iv Contrast(Rout) (12/04/17 07:47) Diatrizoate Liq ( Gastroview Liq) (12/04/17 07:46) Urine Culture (12/04/17 07:23) Iohexol 350 Inj (Omnipaque 350 Inj) (12/04/17 08:36) Us Abdomen Gallbladder (12/04/17 10:00) Morphine Inj (Morphine Inj) (12/04/17 10:15) Ceftriaxone Inj (Rocephin Inj) (12/04/17 10:30) Morphine Inj (Morphine Inj) (12/04/17 12:15) Labs Laboratory Tests Test 12/04/17 07:23 12/04/17 07:40 Urine Collection Type CLEAN CATCH Urine Color YELLOW Urine Turbidity CLEAR Urine pH 5.5 Urine Specific [place] GREATER/EQUAL 1.030 Urine Protein TRACE mg/dL Urine Glucose (UA) NEG mg/dL Urine Ketones TRACE mg/dL Urine Occult Blood MOD Urine Nitrite NEG Urine Bilirubin NEG Urine Urobilinogen 0.2 MG/DL Urine Leukocyte Esterase TRACE Urine RBC 4-9 /hpf Urine WBC 9-14 /hpf Urine Squamous Epithelial Cells 0-5 /hpf Urine Bacteria FEW /hpf Microscopic Urinalysis Comment CULTURE INDICATED White Blood Count 3.4 TH/MM3 Red Blood Count 4.90 MIL/MM3 Hemoglobin 13.4 GM/DL Hematocrit 39.9 % Mean Corpuscular Volume 81.6 FL Mean Corpuscular Hemoglobin 27.5 PG Mean Corpuscular Hemoglobin Concent 33.7 % Red Cell Distribution Width 14.1 % Platelet Count 203 TH/MM3 Mean Platelet Volume 7.4 FL Neutrophils (%) (Auto) 57.9 % Lymphocytes (%) (Auto) 26.4 % Monocytes (%) (Auto) 11.9 % Eosinophils (%) (Auto) 3.1 % Basophils (%) (Auto) 0.7 % Neutrophils # (Auto) 2.0 TH/MM3 Lymphocytes # (Auto) 0.9 TH/MM3 Monocytes # (Auto) 0.4 TH/MM3 Eosinophils # (Auto) 0.1 TH/MM3 Basophils # (Auto) 0.0 TH/MM3 CBC Comment DIFF FINAL Differential Comment Prothrombin Time 14.4 SEC Prothromb Time International Ratio 1.4 RATIO Activated Partial Thromboplast Time 32.2 SEC Blood Urea Nitrogen 18 MG/DL Creatinine 0.83 MG/DL Random Glucose 149 MG/DL Total Protein 7.8 GM/DL Albumin 3.3 GM/DL Calcium Level 9.5 MG/DL Alkaline Phosphatase 124 U/L Aspartate Amino Transf (AST/SGOT) 32 U/L Alanine Aminotransferase (ALT/SGPT) 35 U/L Total Bilirubin 0.5 MG/DL Sodium Level 136 MEQ/L Potassium Level 3.5 MEQ/L Chloride Level 101 MEQ/L Carbon Dioxide Level 22.8 MEQ/L Anion Gap 12 MEQ/L Estimat Glomerular Filtration Rate 68 ML/MIN Lipase 65 U/L MDM Medical Decision Making Medical Screen Exam Complete: Yes Emergency Medical Condition: Yes Medical Record Reviewed: Yes Differential Diagnosis Differential includes pulmonary embolus, cholecystitis, renal colic, radiculopathy Narrative Course Hemoglobin is 13 4 with a white count of 3000. Liver function tests are normal. Patient is at high risk for pulmonary embolus because she has a large clot in her inferior vena cava. A CTA was done and is negative. CT of the abdomen and pelvis was also obtained. There is nonocclusive thrombus involving the right common femoral Vein into the infrarenal inferior vena cava. There is mild enhancement of the right kidney which could be secondary to infectious postop process stone or hydronephrosis. There is a lobulated contour of the gallbladder ultrasound of the gallbladder was recommended. Ultrasound has been done and is suggestive of polyps in the gallbladder. Patient does have a mild urinary tract infection. She will be treated with Keflex as this will affect the INR less than other medications. We will also prescribe some [place] for pain. I am not convinced that the pain she is having is from a UTI though does need to be treated if this pain persists she may need to be evaluated for possible radiculopathy Diagnosis Primary Impression: UTI (urinary tract infection) Scripts Hydrocodone-Acetaminophen ([place]) 7.5-325 mg Tab 1 TAB PO Q4H Y for PAIN, #12 TAB 0 Refills Prov: Jayy Culver MD 12/04/17 Cephalexin (Keflex) 500 Mg Capsule 500 MG PO Q6H for Infection for 7 Days, #28 CAP 0 Refills Prov: Jayy Culver MD 12/04/17 Disposition: 01 DISCHARGE HOME Condition: Stable Jyay Culver MD Dec 04, 2017 07:40
[2017-12-04] MEDS ORDERED: ONDANSETRON HCL 4 MG/2 ML VIAL IV PUSH ONE (07:45)
[2017-12-04] MEDS ORDERED: SODIUM CHLOR 0.9% 1000 ML INJ 1,000 ML IV ONE (07:45)
[2017-12-04] MEDS ORDERED: MORPHINE SULFATE 8 MG/ML INJ IV PUSH ONE ×3 (07:45→12:15)
[2017-12-04] MEDS ORDERED: DIATRIZOATE MEGLUM/DIATRIZOATE SOD 9 ML CUP ONE (07:46)
[2017-12-04 07:51] LABS: BACTERIA, URINE FEW /hpf; SQUAMOUS EPITHELIAL CELL URINE 0-5 /hpf (0-5)
[2017-12-04 07:55] LABS: BASOPHIL % 0.7 % (0.0-2.0); EOSINOPHIL # 0.1 TH/MM3 (0-0.4); EOSINOPHIL % 3.1 % (0.0-4.0); HEMATOCRIT 39.9 % (35.0-46.0); HEMOGLOBIN 13.4 GM/DL (11.6-15.3); LYMPH % 26.4 % (9.0-44.0); LYMPHOCYTE # 0.9 TH/MM3 (1.0-4.8); MEAN CELL VOLUME 81.6 FL (80.0-100.0); MEAN CORPUSCULAR HEMOGLOBIN 27.5 PG (27.0-34.0); MEAN CORPUSCULAR HGB CONC 33.7 % (32.0-36.0); MEAN PLATELET VOLUME 7.4 FL (7.0-11.0); MONO % 11.9 % (0.0-8.0); MONOCYTE # 0.4 TH/MM3 (0-0.9); NEUT % 57.9 % (16.0-70.0); PLATELET COUNT 203 TH/MM3 (150-450); RED CELL DISTRIBUTION WIDTH 14.1 % (11.6-17.2); WHITE BLOOD COUNT 3.4 TH/MM3 (4.0-11.0)
[2017-12-04 08:06] LABS: CHLORIDE 101 MEQ/L (98-107); SODIUM (NA) 136 MEQ/L (136-145)
[2017-12-04 08:09] LABS: CALCIUM 9.5 MG/DL (8.5-10.1)
[2017-12-04 08:10] LABS: ALBUMIN 3.3 GM/DL (3.4-5.0); BICARBONATE 22.8 MEQ/L (21.0-32.0); BLOOD UREA NITROGEN 18 MG/DL (7-18); GLUCOSE,RANDOM 149 MG/DL (74-106)
[2017-12-04 08:13] LABS: ALT (GPT) 35 U/L (10-53); AST (GOT) 32 U/L (15-37); CREATININE 0.83 MG/DL (0.50-1.00); GLOMERULAR FILTRATION RATE 68 ML/MIN (>89)
[2017-12-04 08:14] LABS: TOTAL BILIRUBIN ADULT 0.5 MG/DL (0.2-1.0); TOTAL PROTEIN 7.8 GM/DL (6.4-8.2)
[2017-12-04 08:15] LABS: ALKALINE PHOSPHATASE 124 U/L (45-117)
[2017-12-04] MEDS ORDERED: IOHEXOL 350 MG/ML 10 ML VIAL (for RAD DIAG) IVCONTRAST ONE (08:36)
[2017-12-04 08:39] LABS: INTERNATIONAL NORMALIZED RATIO 1.4 RATIO; PROTHROMBIN TIME - PATIENT 14.4 SEC (9.8-11.6)
[2017-12-04 09:16] VITALS: BP 142/82; PULSE 99; RESP 16; O2SAT 96
--- NOTE | 2017-12-04 09:16 | RADRPT ---
EXAM DATE: 12/04/2017 8:33 AM EDT AGE/SEX: 67 years / Female INDICATIONS: Right upper quadrant and back pain x 5 days. Recent clot seen on studies at [place] . CLINICAL DATA: This is the patient's initial encounter. Patient reports that signs and symptoms have been present for 4 - 6 days and indicates a pain score of 10/10. MEDICAL/SURGICAL HISTORY: Hypertension. Deep venous thrombosis. Carcinoma, cervical. None. RADIATION DOSE: 22.23 CTDI (mGy) COMPARISON: No prior exams available for comparison. TECHNIQUE: Volumetric scanning was performed using a multi-row detector CT scanner during bolus infu aj of 100 ml Omnipaque 350 (iohexol) nonionic water-soluble contrast as a cumulative dose for [facility] exams. The data was post processed with a variety of visualization algorithms including full vol ume maximum intensity projection and sliding thin slab reformation. Using automated exposure control and adjustment of the mA and/or kV according to patient size, radiation dose was kept as low as reas onably achievable to obtain optimal diagnostic quality images. FINDINGS: Pulmonary Arteries: No filling defects are seen in the pulmonary arteries out to the subsegmental ve ssels. The left and right pulmonary arteries are normal in diameter. Lung: No infiltrates seen. Linear atelectasis within the lingula. No mass. No bronchiectasis. Effusion: None. Mediastinum: No evidence of mediastinal or hilar adenopathy. Other: See the CT of the abdomen and pelvis reported separately. Right-sided Port-A-Cath.. CONCLUSION: 1. No acute intrathoracic abnormality. In particular, no pulmonary emboli. Electronically signed by: Augusto Jeffrey MD 12/04/2017 9:15 AM EDT
--- NOTE | 2017-12-04 09:37 | RADRPT ---
EXAM DATE: 12/04/2017 8:36 AM EDT AGE/SEX: 67 years / Female INDICATIONS: Right upper quadrant and back pain x 5 days. Recent clot seen on studies at [place] . CLINICAL DATA: This is the patient's initial encounter. Patient reports that signs and symptoms have been present for 4 - 6 days and indicates a pain score of 10/10. MEDICAL/SURGICAL HISTORY: Hypertension. Deep venous thrombosis. Carcinoma, cervical. None. ORAL CONTRAST: No oral contrast ingested. RADIATION DOSE: 21.58 CTDI (mGy) COMPARISON: [facility] [place], CT ABDOMEN & PELVIS W CONTRAST, 05/14/2017. . TECHNIQUE: Multiple contiguous axial images were obtained through the abdomen and pelvis following b olus infusion of 100 ml Omnipaque 350 (iohexol) nonionic water-soluble contrast as a cumulative dos e for multiple exams. No oral contrast ingested. Using automated exposure control and adjustment of the mA and/or kV according to patient size, the radiation dose was kept as low as reasonably achievab le to obtain optimal diagnostic quality images. FINDINGS: Lower Lungs: The visualized lower lungs are clear. See the CTA of the chest reported separately. Liver: The liver has a homogeneous density . A 5 mm cyst is seen within segment 2 of the liver. There is no dilation of the biliary tree. The gallbladder is not distended. There is lobulation to the wal l of the gallbladder particularly near the fundal region. No pericholecystic fluid. Spleen: Homogeneous density without enlargement. Pancreas: Unremarkable without mass or calcification. Kidneys: Normal in size and shape. No evidence of mass or hydronephrosis. There is circumferential e nhancement involving the collecting system of the right kidney at the UPJ. There is mild stranding of the surrounding fat. No stones or mass. No perinephric fluid collections. Tiny cortical renal cysts bilaterally as well as bilateral peripelvic cysts. Adrenal Glands: Unremarkable. Aorta: The aorta and proximal iliac vessels are grossly unremarkable without aneurysmal dilation. Bowel/Mesentery: The bowel loops are grossly unremarkable. The cecum and sigmoid colon have a normal configuration. Abdominal Wall: Intact. Retroperitoneum: No evidence of adenopathy in the retrocrural, para-aortic, or deep pelvic regions. Bladder: Contours are smooth. No mass or stone. Reproductive Organs: There is a lobulated contour to the uterus with multiple low-density masses. Th e largest measures 4.2 cm.. Inguinal: The inguinal region is unremarkable without evidence of adenopathy. Bony Structures: Degenerative changes involving the lumbar spine, hips, and pubic symphysis. A scoli otic curvature also noted with concavity towards the patient's right.. There is a filling defect involving the infrarenal IVC extending down to the common femoral vein on t he right. No filling defects seen involving the left. CONCLUSION: 1. Nonocclusive thrombus involving the right common femoral artery extending to the infrarenal IVC. No collateralization observed. 2. Subtle enhancement and mild stranding of the adjacent fat involving the collecting system of the right kidney adjacent to the UPJ. This can be seen in acute infectious processes. No stone or hydrone phrosis. 3. Lobulated contour to the gallbladder. This may relate to polyposis. The appearance is not consist ent with stones. Ultrasound of the gallbladder suggested to further assess. 4. Fibroid uterus. Electronically signed by: Augusto Jeffrey MD 12/04/2017 9:36 AM EDT
[2017-12-04] MEDS ORDERED: cefTRIAXone INJ 1,000 MG in SODIUM CHLORIDE 0.9% INJ 100 ML IV ONE (10:30)
[2017-12-04 10:56] VITALS: BP 135/76; PULSE 92; RESP 16; O2SAT 98
--- NOTE | 2017-12-04 12:48 | RADRPT ---
EXAM DATE: 12/04/2017 11:16 AM EDT AGE/SEX: 67 years / Female INDICATIONS: Right upper quadrant pain. CLINICAL DATA: This is the patient's initial encounter. Patient reports that signs and/or symptoms h ave been present for 1 day and indicates a pain score of 4/10. MEDICAL/SURGICAL HISTORY: Deep venous thrombosis. Hypertension. Cervical cancer. . COMPARISON: [facility], CT ABDOMEN & PELVIS W CONTRAST, 12/04/2017.. . MEASUREMENTS (cm x cm x cm): Liver:__ 13.8 cm length Common Bile Duct:__ 4mm FINDINGS: Liver: Increased echotexture without focal lesion or ductal dilation. Portal Vein: Hepatopedal flow seen in portal vein. Common Duct: No intraluminal mass or stone visualized. Gallbladder: Multiple rounded echogenic foci are seen involving the dependent and antidependent wall s of the gallbladder. These echogenic foci do not have shadowing. There is wall thickening involving the gallbladder reaching a maximum thickness of 6 mm. No pericholecystic fluid.. Pancreas: The visualized portions are within normal limits Right Kidney: No mass or hydronephrosis Other: None. CONCLUSION: 1. Multiple echogenic nonshadowing and nonmobile lesions throughout the gallbladder with wall thicke merrick. This is felt to relate to multiple polyps. 2. Hepatic steatosis. Electronically signed by: Augusto Jeffrey MD 12/04/2017 12:47 PM EDT
[2017-12-04] MEDS ORDERED: HYDR-3288 PO (12:54)
[2017-12-04] MEDS ORDERED: CEPH-460 PO (12:54)
[2017-12-04 13:05] VITALS: BP 119/72; PULSE 83; RESP 16; O2SAT 96
== END 2017-12-04 13:16 | disposition home or self-care (01) ==
LOC: PHED 06:56
DX: N39.0 Urinary tract infection, site not specified (principal); B99.8 Other infectious disease; D25.9 Leiomyoma of uterus, unspecified; K76.0 Fatty (change of) liver, not elsewhere classified; M54.9 Dorsalgia, unspecified; I10 Essential (primary) hypertension; Z79.899 Other long term (current) drug therapy; Z86.718 Personal history of other venous thrombosis and embolism; Z79.01 Long term (current) use of anticoagulants
CPT/HCPCS: 71275; 74177; 76705; 80053; 81001; 83690; 85025; 85610; 85730; 87077; 87086; 87186; 96361; 96365; 96375; 96376; 99285; J0696; J2270; J2405; J7030; Q9967; Q9963